=== PATIENT | female | born 1995 | race American Indian/Alaskan Native ===

== ENCOUNTER 2017-01-08 23:18 | Inpatient (IN) | payer MEDICAID ==
[2017-01-09] MEDS ORDERED: LACTATED RINGERS 1,000 ML ONE (00:17)
[2017-01-09] MEDS ORDERED: PITOCin/NS 20 UNIT/1000ML DRIP 20,000 MILLIUNITS/1,000 ML BAG IV ONE (00:46)
[2017-01-09] MEDS ORDERED: BRETHINE IVP PRN (01:23)
[2017-01-09] MEDS ORDERED: ePHEDrine SULFATE IV PRN ×2 (01:23→04:21)
[2017-01-09] MEDS ORDERED: POLYCILLIN/NS 2 GM/100 ML 2 GM/100 ML BAG IV ONE (01:23)
[2017-01-09] MEDS ORDERED: STADOL IV PRN (01:23)
[2017-01-09] MEDS ORDERED: MINERAL OIL PO PRN (01:23)
[2017-01-09] MEDS ORDERED: SUBLIMAZE IV PRN (01:23)
--- NOTE | 2017-01-09 01:32 | History and Physical Report ---
History of Present Illness Date of examination: 01/09/17 Chief complaint: Labor contractions @ 40w0d History of present illness: EDC Calculations 01/09/17 by 1st trimester u/s Past History : 3 Para 1 Abort 1 01/2013 4.5lbs IUGR Past Surgical History: Reviewed history from 08/24/2012 and no changes required: Negative Past Surgical History Past Medical History Abnormal PAP: negative ALEXIS Exposure: negative Infertility: negative Uterine Anomaly: negative Uterine Surgery (not C/S): negative Other Gynecologic Problems: negative Social Hx: Patient is single no etoh, no illicit drug use, no tobacco use Infection History Hx of STD: chlamydia Personal hx. of genital herpes: no Partner hx. of genital herpes: no Rash, Viral, or Febrile illness since last LMP? no Varicella/Chicken Pox Status: Previous Disease Genetic History Congenital Heart Defect: Mom: no Dad: no Marion Disease: Mom: no Dad: no Thalassemia Mom: no Dad: no Neural Tube Defect Mom: no Dad: no Down's Syndrome Mom: no Dad: no Salbador-Sachs Mom: no Dad: no Sickle Cell Disease/Trait Mom: no Dad: no Hemophilia Mom: no Dad: no Muscular Dystrophy Mom: no Dad: no Cystic Fibrosis Mom: no Dad: no [place] Chorea Mom: no Dad: no Mental Retardation Mom: no Dad: no Fragile X Mom: no Dad: no Other Genetic/Chromosomal Disorder Mom: no Dad: no Child w/other defect Mom: no Dad: no Enviromental Exposures Xray Exposure: no Medication, drug, or alcohol use since LMP: no Chemical/Other Exposure: no Exposure to Cat Liter: no Hx of Parvovirus (Fifth Disease): no Occupational Exposure to Children: none Current Allergies: No known allergies Past History Past Medical History: other (CF carrier) Past Surgical History: no surgical history Social history: no significant social history. denies: smoking, alcohol abuse, prescription drug abuse, IV drug use - Obstetrical History Expected Date of Delivery: 01/09/17 Actual Gestation: 40 Week(s) 0 Day(s) : 3 Para: 1 Hx # Term Pregnancies: 1 Number of Pregnancies: 0 Spontaneous Abortions: 0 Induced : 1 Number of Living Children: 1 Medications and Allergies Allergies Allergy/AdvReac Type Severity Reaction Status Date / Time No Known Allergies Allergy Unverified 07/02/16 15:52 Home Medications Medication Instructions Recorded Confirmed Last Taken Type Vit-Fe Penelope-FA [ 1 tab PO QDAY 07/02/16 07/02/16 Unknown History Vitamin] Review of Systems All systems: negative - Vital Signs Vital signs: Vital Signs Pulse Pulse Ox 129 H 98 01/08/17 23:23 01/08/17 23:23 Temp Pulse Resp BP Pulse Ox 129 H 97 01/08/17 23:26 01/08/17 23:26 - Physical Exam Breasts: Positive: normal Cardiovascular: Regular rate Lungs: Positive: Clear to auscultation, Normal air movement Abdomen: Positive: normal appearance, soft Genitourinary (Female): Positive: normal external genitalia, normal perenium Vulva: both: normal Vagina: Positive: normal moisture Uterus: Positive: normal size, normal contour Anus/Rectum: Positive: normal perianal skin Extremities: Positive: normal Deep Tendon Reflex Grade: Normal +2 - Obstetrical FHR: auscultation normal Uterine Contraction Monitor Mode: External Cervical Dilatation: 6 (BBOW, head balotable) Cervical Effacement Percentage: 50 station: -2 Uterine Contraction Frequency (min): 3-5 Uterine Contraction Duration: 80-100 Uterine Contraction Pattern: Regular Uterine Tone Measurement Phase: Contraction Uterine Contraction Intensity: Mild Results All other labs normal. Laboratory Data-Patient Name: ANGELITA RODRIGUEZ Test Date Result Blood Type 06/25/2016 O Rh 06/25/2016 Positive Antibody Screen Negative Rubella 06/25/2016 Immune Serology (RPR) 12/08/2016 nonreactive HBsAg 06/25/2016 Negative Hemoglobin 09/29/2016 8.3 Hematocrit 09/29/2016 27.1 Platelets 06/25/2016 228 [id number] Chlamydia DNA 12/08/2016 Negative GC DNA/Culture 12/08/2016 Urine Culture 06/25/2016 Final report Group B Strep cult 01/05/2013 Positive PAP HIV 12/08/2016 Negative AFP/Quad Screen 08/21/2016 Glucola Test 10/20/2012 94 3hr GTT (Fasting) 1 hr 2 hr 3 hr [facility]-Patient Name:ANGELITA RODRIGUEZ Test Date Result Varicella Ab Sickle Cell 06/25/2016 Negative PPD Fibronectin Cystic Fibrosis 09/14/2012 positive Parvovirus TSH Free T4 Hepatitis C ALT AST Uric Acid Creatinine 24 hr Urine Protein TERESA Assessment and Plan 21y/o @ 40weeks, active labor /-2 BBOW and balotable head in pelvis. GBS +, Orders in EMR. First delivery 2013 IUGR 4#5. This baby 7# by [place]. Epidural PRN. Will allow to labor without intervention for GBS treatment unless necessary. 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
[2017-01-09] MEDS ORDERED: LACTATED RINGERS 1,000 ML IV SCH (02:00)
[2017-01-09] MEDS ORDERED: PITOCin/NS 20 UNIT/1000ML DRIP 20,000 MILLIUNITS/1,000 ML BAG IV SCH ×2 (02:00→15:42)
[2017-01-09 03:31] LABS: Hematocrit 36.3 % (30.3-42.9); Hemoglobin 11.5 gm/dl (10.1-14.3); Mean Corpuscular HGB Conc 32 % (30-34); Mean Corpuscular Volume 71 fl (79-97); Red Blood Count 5.12 M/mm3 (3.65-5.03); White Blood Count 10.9 K/mm3 (4.5-11.0)
[2017-01-09 03:32] LABS: Mean Corpuscular Hemoglobin 23 pg (28-32); Red Cell Distribution Width 27.2 % (13.2-15.2)
[2017-01-09 03:33] LABS: Platelet Count 125 K/mm3 (140-440)
[2017-01-09] MEDS ORDERED: PITOCin/NS 30 UNIT/500ML 30,000 MILLIUNITS/500 ML BAG IV ONE (03:36)
[2017-01-09] MEDS ORDERED: fentaNYL-BUPIV 2 MCG/ML-0.125% 200 MCG/100 ML BAG EPIDURAL ONE (04:04)
--- NOTE | 2017-01-09 04:20 | Anesthesia Consultation ---
Anesthesia Consult and Med Hx Date of service: 01/09/17 - Airway Anesthetic Teeth Evaluation: Good ROM Head & Neck: Adequate Mental/Hyoid Distance: Adequate Intubation Access Assessment: Probably Good - Pre-Operative Health Status ASA Pre-Surgery Classification: ASA2, Emergency Proposed Anesthetic Plan: Epidural, Spinal - Pulmonary Hx Asthma: No COPD: No Hx Pneumonia: No - Cardiovascular System Hx Hypertension: No - Central Nervous System Hx Seizures: No Hx Psychiatric Problems: No - Endocrine Hx Renal Disease: No Hx End Stage Renal Disease: No Hx Hypothyroidism: No Hx Hyperthyroidism: No - Hematic Hx Anemia: Yes Hx Sickle Cell Disease: No - Other Systems Hx Alcohol Use: No - Additional Comments Anesthesia Medical History Comments: Patient has tattoo covering lower back from approximately T12-L1 to sacral area. The L2-L3 interspace has no ink and should be OK for epidural placement.
[2017-01-09] MEDS ORDERED: NARCAN 2 MG/2 ML IV PRN (04:21)
[2017-01-09] MEDS ORDERED: fentaNYL-BUPIV 2 MCG/ML-0.125% 200 MCG/100 ML BAG EPIDURAL SCH (05:00)
[2017-01-09] MEDS ORDERED: PITOCin/NS 30 UNIT/500ML 30,000 MILLIUNITS/500 ML BAG IV SCH (06:00)
[2017-01-09] MEDS: POLYCILLIN/NS 1 GM/50 ML 1 GM/50 ML BAG IV SCH ×2 (06:29→10:59)
--- NOTE | 2017-01-09 06:44 | Progress Note ---
Assessment and Plan pt comfortable s/p epidural, SVE with AROM - mec fluid noted. IUPC placed without difficulty. Second dose of Ampicillin infusing for GBS prophylaxis. 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 Subjective - Subjective Date of service: 01/09/17 Principal diagnosis: IUP @ 40wks, labor, GBS+ Interval history: EDC Calculations 01/09/17 by 1st trimester u/s Past History : 3 Para 1 Abort 1 01/2013 4.5lbs IUGR Past Surgical History: Reviewed history from 08/24/2012 and no changes required: Negative Past Surgical History Past Medical History Abnormal PAP: negative ALEXIS Exposure: negative Infertility: negative Uterine Anomaly: negative Uterine Surgery (not C/S): negative Other Gynecologic Problems: negative Social Hx: Patient is single no etoh, no illicit drug use, no tobacco use Infection History Hx of STD: chlamydia Personal hx. of genital herpes: no Partner hx. of genital herpes: no Rash, Viral, or Febrile illness since last LMP? no Varicella/Chicken Pox Status: Previous Disease Genetic History Congenital Heart Defect: Mom: no Dad: no Marion Disease: Mom: no Dad: no Thalassemia Mom: no Dad: no Neural Tube Defect Mom: no Dad: no Down's Syndrome Mom: no Dad: no Salbador-Sachs Mom: no Dad: no Sickle Cell Disease/Trait Mom: no Dad: no Hemophilia Mom: no Dad: no Muscular Dystrophy Mom: no Dad: no Cystic Fibrosis Mom: no Dad: no [place] Chorea Mom: no Dad: no Mental Retardation Mom: no Dad: no Fragile X Mom: no Dad: no Other Genetic/Chromosomal Disorder Mom: no Dad: no Child w/other defect Mom: no Dad: no Enviromental Exposures Xray Exposure: no Medication, drug, or alcohol use since LMP: no Chemical/Other Exposure: no Exposure to Cat Liter: no Hx of Parvovirus (Fifth Disease): no Occupational Exposure to Children: none Current Allergies: No known allergies Patient reports: no new complaints Objective - Vital Signs Vital Signs: Vital Signs - 12hr 01/08/17 01/08/17 01/08/17 23:23 23:24 23:25 Pulse Rate 129 H 129 H 125 H Respiratory Rate Blood Pressure O2 Sat by Pulse 98 98 97 Oximetry 01/08/17 01/09/17 01/09/17 23:26 00:46 02:27 Pulse Rate 129 H 86 Respiratory Rate Blood Pressure 169/92 132/76 O2 Sat by Pulse 97 98 Oximetry 01/09/17 01/09/17 01/09/17 02:28 02:39 02:40 Pulse Rate 91 H 105 H 110 H Respiratory Rate Blood Pressure 129/93 119/77 O2 Sat by Pulse 98 Oximetry 01/09/17 01/09/17 01/09/17 03:46 03:47 03:50 Pulse Rate 121 H 125 H 122 H Respiratory Rate Blood Pressure 124/80 137/74 O2 Sat by Pulse 100 Oximetry 01/09/17 01/09/17 01/09/17 03:51 03:53 03:55 Pulse Rate 105 H 118 H 108 H Respiratory Rate Blood Pressure 128/70 124/66 129/69 O2 Sat by Pulse 99 Oximetry 01/09/17 01/09/17 01/09/17 03:56 03:57 03:59 Pulse Rate 122 H 107 H 104 H Respiratory Rate Blood Pressure 133/77 122/74 O2 Sat by Pulse 100 Oximetry 01/09/17 01/09/17 01/09/17 04:01 04:03 04:06 Pulse Rate 110 H 116 H 97 H Respiratory Rate Blood Pressure 121/73 121/74 125/72 O2 Sat by Pulse 100 98 Oximetry 01/09/17 01/09/17 01/09/17 04:07 04:09 04:11 Pulse Rate 96 H 80 115 H Respiratory Rate Blood Pressure 125/75 125/72 121/80 O2 Sat by Pulse 99 Oximetry 01/09/17 01/09/17 01/09/17 04:14 04:15 04:16 Pulse Rate 93 H 87 88 Respiratory 20 20 Rate Blood Pressure 140/63 126/60 126/60 O2 Sat by Pulse 98 Oximetry 01/09/17 01/09/17 01/09/17 04:17 04:21 04:26 Pulse Rate 92 H 84 92 H Respiratory Rate Blood Pressure 115/55 O2 Sat by Pulse 97 97 Oximetry 01/09/17 01/09/17 01/09/17 04:31 04:34 04:36 Pulse Rate 84 85 89 Respiratory Rate Blood Pressure 115/66 O2 Sat by Pulse 98 98 Oximetry 01/09/17 01/09/17 01/09/17 04:41 04:46 04:49 Pulse Rate 87 91 H 92 H Respiratory Rate Blood Pressure 120/73 O2 Sat by Pulse 98 98 Oximetry 01/09/17 01/09/17 01/09/17 04:51 04:56 05:01 Pulse Rate 80 80 115 H Respiratory Rate Blood Pressure O2 Sat by Pulse 99 98 99 Oximetry 01/09/17 01/09/17 01/09/17 05:05 05:06 05:11 Pulse Rate 89 81 94 H Respiratory Rate Blood Pressure 114/69 O2 Sat by Pulse 99 99 Oximetry 01/09/17 01/09/17 01/09/17 05:16 05:20 05:21 Pulse Rate 105 H 81 90 Respiratory Rate Blood Pressure 122/76 O2 Sat by Pulse 99 99 Oximetry 01/09/17 01/09/17 01/09/17 05:26 05:31 05:36 Pulse Rate 81 104 H 102 H Respiratory Rate Blood Pressure 114/69 O2 Sat by Pulse 99 100 99 Oximetry 01/09/17 01/09/17 01/09/17 05:41 05:46 05:49 Pulse Rate 89 102 H 110 H Respiratory Rate Blood Pressure 113/71 O2 Sat by Pulse 100 100 Oximetry 01/09/17 01/09/17 01/09/17 05:51 05:56 06:01 Pulse Rate 97 H 105 H 87 Respiratory Rate Blood Pressure O2 Sat by Pulse 100 100 100 Oximetry 01/09/17 01/09/17 01/09/17 06:04 06:06 06:11 Pulse Rate 105 H 101 H 109 H Respiratory Rate Blood Pressure 116/69 O2 Sat by Pulse 100 100 Oximetry 01/09/17 01/09/17 01/09/17 06:16 06:19 06:21 Pulse Rate 83 108 H 107 H Respiratory Rate Blood Pressure 116/66 O2 Sat by Pulse 100 100 Oximetry 01/09/17 01/09/17 01/09/17 06:26 06:31 06:36 Pulse Rate 166 H 127 H 140 H Respiratory Rate Blood Pressure O2 Sat by Pulse 100 100 100 Oximetry - Exam Breasts: normal Cardiovascular: Regular rate Lungs: Clear to auscultation, Normal air movement Abdomen: Present: normal appearance, soft Vulva: both: normal Uterus: Present: normal FHR: auscultation normal Uterine Contraction Monitor Mode: Internal Cervical Dilatation: 7 (AROM - mec) Cervical Effacement Percentage: 50 station: -2 Uterine Contraction Frequency (min): 2-6 Uterine Contraction Duration: 70-100 Uterine Contraction Pattern: Irregular Uterine Tone Measurement Phase: Contraction Uterine Contraction Intensity: Moderate Extremities: normal - Labs Labs: Abnormal Labs 01/09/17 01:43 RBC 5.12 H MCV 71 L MCH 23 L RDW 27.2 H Plt Count 125 L Laboratory Results - last 24 hr 01/09/17 01/09/17 01:43 01:43 WBC 10.9 RBC 5.12 H Hgb 11.5 Hct 36.3 MCV 71 L MCH 23 L MCHC 32 RDW 27.2 H Plt Count 125 L Blood Type O POSITIVE
--- NOTE | 2017-01-09 10:18 | Progress Note ---
Assessment and Plan pt comfortable with epidural SVE 9 with extremely thick posterior cervix, vertex -2 Pit @ 4mu FHR cat 2 with occ variables Re-eval in 30 min Pt is aware of concerns for a poss c/s if baby does not come down. Subjective - Subjective Date of service: 01/09/17 (pt comfortable with epidural) Principal diagnosis: IUP @ 40wks, labor, GBS+, meconium Patient reports: movement normal, no new complaints Objective - Vital Signs Vital Signs: Vital Signs - 12hr 01/08/17 01/08/17 01/08/17 23:23 23:24 23:25 Temperature Pulse Rate 129 H 129 H 125 H Pulse Rate [ Radial] Respiratory Rate Blood Pressure Blood Pressure [Left Arm] O2 Sat by Pulse 98 98 97 Oximetry 01/08/17 01/09/17 01/09/17 23:26 00:46 02:27 Temperature Pulse Rate 129 H 86 Pulse Rate [ Radial] Respiratory Rate Blood Pressure 169/92 132/76 Blood Pressure [Left Arm] O2 Sat by Pulse 97 98 Oximetry 01/09/17 01/09/17 01/09/17 02:28 02:39 02:40 Temperature Pulse Rate 91 H 105 H 110 H Pulse Rate [ Radial] Respiratory Rate Blood Pressure 129/93 119/77 Blood Pressure [Left Arm] O2 Sat by Pulse 98 Oximetry 01/09/17 01/09/17 01/09/17 03:46 03:47 03:50 Temperature Pulse Rate 121 H 125 H 122 H Pulse Rate [ Radial] Respiratory Rate Blood Pressure 124/80 137/74 Blood Pressure [Left Arm] O2 Sat by Pulse 100 Oximetry 01/09/17 01/09/17 01/09/17 03:51 03:53 03:55 Temperature Pulse Rate 105 H 118 H 108 H Pulse Rate [ Radial] Respiratory Rate Blood Pressure 128/70 124/66 129/69 Blood Pressure [Left Arm] O2 Sat by Pulse 99 Oximetry 01/09/17 01/09/17 01/09/17 03:56 03:57 03:59 Temperature Pulse Rate 122 H 107 H 104 H Pulse Rate [ Radial] Respiratory Rate Blood Pressure 133/77 122/74 Blood Pressure [Left Arm] O2 Sat by Pulse 100 Oximetry 01/09/17 01/09/17 01/09/17 04:01 04:03 04:06 Temperature Pulse Rate 110 H 116 H 97 H Pulse Rate [ Radial] Respiratory Rate Blood Pressure 121/73 121/74 125/72 Blood Pressure [Left Arm] O2 Sat by Pulse 100 98 Oximetry 01/09/17 01/09/17 01/09/17 04:07 04:09 04:11 Temperature Pulse Rate 96 H 80 115 H Pulse Rate [ Radial] Respiratory Rate Blood Pressure 125/75 125/72 121/80 Blood Pressure [Left Arm] O2 Sat by Pulse 99 Oximetry 01/09/17 01/09/17 01/09/17 04:14 04:15 04:16 Temperature Pulse Rate 93 H 87 88 Pulse Rate [ Radial] Respiratory 20 20 Rate Blood Pressure 140/63 126/60 126/60 Blood Pressure [Left Arm] O2 Sat by Pulse 98 Oximetry 01/09/17 01/09/17 01/09/17 04:17 04:21 04:26 Temperature Pulse Rate 92 H 84 92 H Pulse Rate [ Radial] Respiratory Rate Blood Pressure 115/55 Blood Pressure [Left Arm] O2 Sat by Pulse 97 97 Oximetry 01/09/17 01/09/17 01/09/17 04:31 04:34 04:36 Temperature Pulse Rate 84 85 89 Pulse Rate [ Radial] Respiratory Rate Blood Pressure 115/66 Blood Pressure [Left Arm] O2 Sat by Pulse 98 98 Oximetry 01/09/17 01/09/17 01/09/17 04:41 04:46 04:49 Temperature Pulse Rate 87 91 H 92 H Pulse Rate [ Radial] Respiratory Rate Blood Pressure 120/73 Blood Pressure [Left Arm] O2 Sat by Pulse 98 98 Oximetry 01/09/17 01/09/17 01/09/17 04:51 04:56 05:01 Temperature Pulse Rate 80 80 115 H Pulse Rate [ Radial] Respiratory Rate Blood Pressure Blood Pressure [Left Arm] O2 Sat by Pulse 99 98 99 Oximetry 01/09/17 01/09/17 01/09/17 05:05 05:06 05:11 Temperature Pulse Rate 89 81 94 H Pulse Rate [ Radial] Respiratory Rate Blood Pressure 114/69 Blood Pressure [Left Arm] O2 Sat by Pulse 99 99 Oximetry 01/09/17 01/09/17 01/09/17 05:16 05:20 05:21 Temperature Pulse Rate 105 H 81 90 Pulse Rate [ Radial] Respiratory Rate Blood Pressure 122/76 Blood Pressure [Left Arm] O2 Sat by Pulse 99 99 Oximetry 01/09/17 01/09/17 01/09/17 05:26 05:31 05:36 Temperature Pulse Rate 81 104 H 102 H Pulse Rate [ Radial] Respiratory Rate Blood Pressure 114/69 Blood Pressure [Left Arm] O2 Sat by Pulse 99 100 99 Oximetry 01/09/17 01/09/17 01/09/17 05:41 05:46 05:49 Temperature Pulse Rate 89 102 H 110 H Pulse Rate [ Radial] Respiratory Rate Blood Pressure 113/71 Blood Pressure [Left Arm] O2 Sat by Pulse 100 100 Oximetry 01/09/17 01/09/17 01/09/17 05:51 05:56 06:01 Temperature Pulse Rate 97 H 105 H 87 Pulse Rate [ Radial] Respiratory Rate Blood Pressure Blood Pressure [Left Arm] O2 Sat by Pulse 100 100 100 Oximetry 01/09/17 01/09/17 01/09/17 06:04 06:06 06:11 Temperature Pulse Rate 105 H 101 H 109 H Pulse Rate [ Radial] Respiratory Rate Blood Pressure 116/69 Blood Pressure [Left Arm] O2 Sat by Pulse 100 100 Oximetry 01/09/17 01/09/17 01/09/17 06:16 06:19 06:21 Temperature Pulse Rate 83 108 H 107 H Pulse Rate [ Radial] Respiratory Rate Blood Pressure 116/66 Blood Pressure [Left Arm] O2 Sat by Pulse 100 100 Oximetry 01/09/17 01/09/17 01/09/17 06:26 06:31 06:36 Temperature Pulse Rate 166 H 127 H 140 H Pulse Rate [ Radial] Respiratory Rate Blood Pressure Blood Pressure [Left Arm] O2 Sat by Pulse 100 100 100 Oximetry 01/09/17 01/09/17 01/09/17 06:41 06:46 06:49 Temperature Pulse Rate 91 H 125 H 108 H Pulse Rate [ Radial] Respiratory Rate Blood Pressure 112/69 Blood Pressure [Left Arm] O2 Sat by Pulse 100 100 Oximetry 01/09/17 01/09/17 01/09/17 06:51 06:56 07:01 Temperature Pulse Rate 92 H 97 H 101 H Pulse Rate [ Radial] Respiratory Rate Blood Pressure Blood Pressure [Left Arm] O2 Sat by Pulse 100 100 100 Oximetry 01/09/17 01/09/17 01/09/17 07:05 07:06 07:11 Temperature Pulse Rate 110 H 117 H 94 H Pulse Rate [ Radial] Respiratory Rate Blood Pressure 131/73 Blood Pressure [Left Arm] O2 Sat by Pulse 100 99 Oximetry 01/09/17 01/09/17 01/09/17 07:16 07:19 07:21 Temperature Pulse Rate 105 H 90 95 H Pulse Rate [ Radial] Respiratory Rate Blood Pressure 128/73 Blood Pressure [Left Arm] O2 Sat by Pulse 99 98 Oximetry 01/09/17 01/09/17 01/09/17 07:26 07:29 07:31 Temperature Pulse Rate 121 H 110 H 145 H Pulse Rate [ Radial] Respiratory Rate Blood Pressure 137/92 Blood Pressure [Left Arm] O2 Sat by Pulse 96 92 100 Oximetry 01/09/17 01/09/17 01/09/17 07:35 07:49 07:52 Temperature 99.8 F H Pulse Rate 100 H 96 H Pulse Rate [ 60 Radial] Respiratory 18 Rate Blood Pressure 125/76 122/77 Blood Pressure 125/76 [Left Arm] O2 Sat by Pulse 94 Oximetry 01/09/17 01/09/17 01/09/17 07:57 08:04 08:14 Temperature Pulse Rate 88 99 H 90 Pulse Rate [ Radial] Respiratory Rate Blood Pressure 123/69 Blood Pressure [Left Arm] O2 Sat by Pulse 99 99 Oximetry 01/09/17 01/09/17 01/09/17 08:19 08:24 08:27 Temperature 99.9 F H Pulse Rate 111 H 97 H Pulse Rate [ Radial] Respiratory Rate Blood Pressure 121/68 Blood Pressure [Left Arm] O2 Sat by Pulse 100 100 Oximetry 01/09/17 01/09/17 01/09/17 08:29 08:34 08:39 Temperature Pulse Rate 91 H 94 H 99 H Pulse Rate [ Radial] Respiratory Rate Blood Pressure 125/72 Blood Pressure [Left Arm] O2 Sat by Pulse 99 100 100 Oximetry 01/09/17 01/09/17 01/09/17 08:44 08:49 08:50 Temperature Pulse Rate 92 H 97 H 97 H Pulse Rate [ Radial] Respiratory Rate Blood Pressure 134/77 Blood Pressure [Left Arm] O2 Sat by Pulse 99 100 Oximetry 01/09/17 01/09/17 01/09/17 08:54 08:59 09:04 Temperature Pulse Rate 99 H 94 H 94 H Pulse Rate [ Radial] Respiratory Rate Blood Pressure 134/71 Blood Pressure [Left Arm] O2 Sat by Pulse 100 100 97 Oximetry 01/09/17 01/09/17 01/09/17 09:09 09:14 09:19 Temperature Pulse Rate 90 97 H 91 H Pulse Rate [ Radial] Respiratory Rate Blood Pressure Blood Pressure [Left Arm] O2 Sat by Pulse 100 100 100 Oximetry 01/09/17 01/09/17 01/09/17 09:20 09:24 09:29 Temperature Pulse Rate 88 105 H 99 H Pulse Rate [ Radial] Respiratory Rate Blood Pressure 127/71 Blood Pressure [Left Arm] O2 Sat by Pulse 100 99 Oximetry 01/09/17 01/09/17 01/09/17 09:34 09:39 09:44 Temperature Pulse Rate 97 H 114 H 96 H Pulse Rate [ Radial] Respiratory Rate Blood Pressure 119/66 Blood Pressure [Left Arm] O2 Sat by Pulse 99 99 100 Oximetry 01/09/17 01/09/17 01/09/17 09:49 09:54 09:59 Temperature Pulse Rate 100 H 97 H 93 H Pulse Rate [ Radial] Respiratory Rate Blood Pressure 122/73 Blood Pressure [Left Arm] O2 Sat by Pulse 100 100 100 Oximetry 01/09/17 10:04 Temperature Pulse Rate 100 H Pulse Rate [ Radial] Respiratory Rate Blood Pressure 120/70 Blood Pressure [Left Arm] O2 Sat by Pulse 100 Oximetry - Exam Breasts: deferred Cardiovascular: Regular rate Lungs: Normal air movement Abdomen: Present: normal appearance, soft. Absent: distention, tenderness Uterus: Present: normal FHR: auscultation normal, category 2 (occ variables with ctx) Uterine Contraction Monitor Mode: Internal Cervical Dilatation: 9 (thick cervix posterior) Cervical Effacement Percentage: 60 station: -2 Uterine Contraction Pattern: Regular Uterine Tone Measurement Phase: Resting Uterine Contraction Intensity: Moderate Extremities: normal Deep Tendon Reflex Grade: Normal +2 - Labs Labs: Abnormal Labs 01/09/17 01:43 RBC 5.12 H MCV 71 L MCH 23 L RDW 27.2 H Plt Count 125 L Laboratory Results - last 24 hr 01/09/17 01/09/17 01:43 01:43 WBC 10.9 RBC 5.12 H Hgb 11.5 Hct 36.3 MCV 71 L MCH 23 L MCHC 32 RDW 27.2 H Plt Count 125 L Blood Type O POSITIVE Antibody Screen Negative
[2017-01-09] MEDS ORDERED: TYLENOL PO ONE (11:05)
[2017-01-09] MEDS ORDERED: REGLAN IV ONE (11:37)
[2017-01-09] MEDS ORDERED: PEPCID IV ONE (11:37)
[2017-01-09] MEDS ORDERED: BICITRA PO ONE (11:37)
--- NOTE | 2017-01-09 11:42 | Event Note ---
Date: 01/09/17 (c/s arrest of descent) Attempted to have pt push past 9cm cervix. No descent of head. Large amt of bloody show. Category 2 strip. Pt is aware this baby is much larger than her fist and my concern is shoulder dystocia if I could deliver the head. Pt agreed to section. Spoke with Dr Harrison C/S called Pt consented. Orders in EMR. Discussed with pt risks of sugery and poss need for blood
--- NOTE | 2017-01-09 11:58 | Event Note ---
Date: 01/09/17 Discussed with patient the indications for operative delivery. All questions answered. Patient informed the risks of the surgery include bleeding possibly bleeding heavy enough to require blood transfusion, infection possible damage to bowel bladder ureter. All questions answered. Patient agrees to proceed
[2017-01-09] MEDS ORDERED: XYLOCAINE MPF 2% ONE ×2 (11:59→12:51)
[2017-01-09] MEDS ORDERED: MORPHINE ONE (11:59)
[2017-01-09] MEDS ORDERED: PITOCin 20 UNIT in NACL 0.9% 1000 ML 1,000 ML IV SCH (12:00)
[2017-01-09] MEDS ORDERED: LACTATED RINGERS 1,000 ML IV NR (12:00)
[2017-01-09] MEDS ORDERED: ANCEF/STERILE WATER 2 GM/20 ML 2 GM/20 ML SYRINGE IV NR (12:00)
[2017-01-09] MEDS ORDERED: ANCEF/STERILE WATER 2 GM/20 ML IV ONE (12:00)
[2017-01-09] MEDS ORDERED: ZOFRAN ONE (12:11)
[2017-01-09] MEDS ORDERED: NACL 0.9% IR ONE (12:36)
[2017-01-09] MEDS ORDERED: WATER FOR IRRIG STERILE IR ONE (12:36)
[2017-01-09] MEDS ORDERED: MORPHINE IV PRN ×3 (13:03→15:42)
--- NOTE | 2017-01-09 13:03 | Post Anesthesia Evaluation ---
- Post Anesthesia Evaluation Patient Participated: Yes Airway Patent: Yes Stable Respiratory Function: Yes Nausea/Vomiting: No Temp > 96.8F: Yes Pain Manageable: Yes Adequeate Hydration: Yes Anesthesia Complications: No Block Receding Appropriately: Yes Patient on Ventilator: No
--- NOTE | 2017-01-09 13:03 | Anesthesia Day of Surgery ---
Anesthesia Day of Surgery - Day of Surgery Patient Examined: Yes Patient H&P Reviewed: Yes Patient is NPO: Yes
[2017-01-09] MEDS ORDERED: TORADOL IV PRN (13:04)
--- NOTE | 2017-01-09 13:10 | Operative Report ---
Operative Report Operative Report: Date of procedure: 01/09/2017 Pre-operative diagnosis: Intrauterine at 40 weeks gestation with meconium-stained fluid and failure of descent Post-operative diagnosis: Same Procedure name(s): Primary low transverse section Surgeon: Yovany Harrison MD Surfboard Designer: Sarah Lamar certified nurse operations and maintenance technician Anesthesia: Epidural EBL: 600 mL Complications: None Findings: Adenoid male weight 8 lbs. 3 oz. Apgars 9 at 1 minute and 9 at 5 minutes patient with normal uterus, tubes and ovaries bilaterally Specimen(s): None Procedure: The patient was brought to the operating room. A spinal was placed without any complications. She was then placed in left lateral tilt. Prepped and draped in the usual sterile manner. After testing for adequate anesthesia level, a Pfannenstiel incision was made. This incision was taken down to the fascia. The fascia was then nicked in the midline. This incision was extended out laterally with Toscano scissors. The fascia was then sharply and bluntly from the underlying rectus muscles. The rectus muscles were bluntly and sharply . The peritoneum was then entered with the feed mill operator's fingers. This incision was spread vertically with care not to damage the bladder below. The bladder flap was then formed sharply and bluntly with Metzenbaum scissors. Bladder blade was placed. A transverse incision was made in lower uterine segment. This incision was extended laterally with the operators fingers. The amniotic sac was then entered bluntly with the feed mill operator' s fingers. The infant was delivered from the vertex position. Bulb suction on the mother's abdomen. Cord was double clamped and cut. The was then passed to the nursery personnel who were in attendance. The above scores were given by the nursery personnel. The placenta was then bluntly removed. The uterus was then externalized and wiped clean the remaining products. The uterine incision was closed in layers. The first incision was closed in a locking manner using 0 Vicryl. This was followed by imbricating stitch also with 0 Vicryl. Additional [id number] sutures had to be place. This closure was hemostatic. The bladder flap was copiously irrigated and found to be hemostatic. The pelvis was copiously irrigated and found to be hemostatic. The uterus was then placed back to the patient's abdomen. Surgicel was placed over the uterine incision. The retractors were removed. The rectus muscles were inspected and found to be hemostatic. The fascia was then closed in a running manner using 0 Vicryl. This incision was hemostatic irrigation Bovie. The skin was reapproximated with 4-0 Vicryl subcuticularly. The patient tolerated procedure well. Her urine was clear. The was admitted to the well baby nursery. The patient was accompanied to recovery room in good condition. Instrument count correct 3.
[2017-01-09] MEDS ORDERED: LANSINOH TP PRN (15:42)
[2017-01-09] MEDS ORDERED: TUCKS PAD TP PRN (15:42)
[2017-01-09] MEDS ORDERED: SODIUM CHLORIDE FLUSH SYRINGE 10 ML IV NR (15:42)
[2017-01-09] MEDS ORDERED: MILK OF MAGNESIA PO PRN (15:42)
[2017-01-09] MEDS ORDERED: MYLICON PO PRN (15:42)
[2017-01-09] MEDS ORDERED: NARCAN 0.4 MG/1 ML IV PRN (15:42)
[2017-01-09] MEDS ORDERED: D5LR 1,000 ML IV SCH (15:42)
[2017-01-09] MEDS ORDERED: ANCEF/NS 1 GM/50 ML 1 GM/50 ML BAG IV SCH (16:00)
[2017-01-09] MEDS: ANCEF/NS 1 GM/50 ML 1 GM/50 ML BAG IV SCH (20:40)
[2017-01-10 01:00] LABS: Hematocrit 29.3 % (30.3-42.9); Hemoglobin 9.2 gm/dl (10.1-14.3)
[2017-01-10] MEDS: ANCEF/NS 1 GM/50 ML 1 GM/50 ML BAG IV SCH (05:05)
--- NOTE | 2017-01-10 07:58 | Progress Note ---
Assessment and Plan - Patient Problems (1) delivery delivered Onset Date: ~01/09/17 Current Visit: Yes Status: Acute Plan to address problem: Pt w/o complaint this AM VSS FF below umb Lochia small Dressing removed Incision D&I H&H 9.2/29.3, anemia r/t blood loss of surgery. Pt w/o any s/sx of anemia. Doing well s/p section P: continue pathway. Add po Iron to medications. Advance diet and activity Subjective - Subjective Date of service: 01/10/17 (pt w/o complaint) Principal diagnosis: Day # 1 s/p Patient reports: appetite normal, voiding normally, pain well controlled, ambulating normally Martin: doing well Objective - Vital Signs Latest vital signs: Vital Signs Temp Pulse Pulse Resp BP BP Pulse Ox 01/10/17 04:35 98.4 F 112 H 18 113/73 01/10/17 01:30 99.6 F 105 H 18 116/65 01/09/17 20:55 99.8 F H 112 H 18 130/66 01/09/17 16:10 99.2 F 100 H 18 102/52 01/09/17 14:00 98.9 F 98 H 18 132/80 01/09/17 13:51 99.0 F 93 H 20 131/79 99 01/09/17 13:35 98.2 F 91 H 18 126/71 99 01/09/17 13:20 99.2 F 100 H 18 128/75 99 01/09/17 13:05 89 25 H 132/83 99 01/09/17 13:00 101 H 24 135/88 99 01/09/17 12:55 99.3 F 100 H 22 120/72 99 01/09/17 11:49 118 H 122/68 01/09/17 11:35 150 H 121/79 01/09/17 11:20 105 H 108/81 01/09/17 11:05 112 H 122/69 01/09/17 10:58 100.8 F H 95 H 20 119/66 01/09/17 10:49 117 H 119/66 01/09/17 10:34 96 H 129/74 01/09/17 10:19 103 H 122/73 01/09/17 10:04 100 H 120/70 100 01/09/17 09:59 93 H 100 02/18/17 09:54 97 H 100 01/09/17 09:49 100 H 122/73 100 01/09/17 09:44 96 H 100 01/09/17 09:39 114 H 99 01/09/17 09:34 97 H 119/66 99 01/09/17 09:29 99 H 99 01/09/17 09:24 105 H 100 01/09/17 09:20 88 127/71 01/09/17 09:19 91 H 100 01/09/17 09:14 97 H 100 01/09/17 09:09 90 100 01/09/17 09:04 94 H 134/71 97 01/09/17 08:59 94 H 100 01/09/17 08:54 99 H 100 01/09/17 08:50 97 H 134/77 01/09/17 08:49 97 H 100 01/09/17 08:44 92 H 99 01/09/17 08:39 99 H 100 01/09/17 08:34 94 H 125/72 100 01/09/17 08:29 91 H 99 01/09/17 08:27 99.9 F H 01/09/17 08:24 97 H 100 01/09/17 08:19 111 H 121/68 100 01/09/17 08:14 90 99 01/09/17 08:04 99 H 123/69 01/09/17 07:57 88 99 Intake and Output 01/09/17 01/10/17 01/10/17 22:59 06:59 14:59 Intake Total 1010 1290 Output Total 2350 1000 Balance -1340 290 Intake: IV 50 1050 ANCEF/NS 1 GM/50 ML 1 gm 50 50 In 50 ml @ 100 mls/hr IV Q8H DEBI Rx#:[id number] D5lr 1,000 ml @ 125 mls/ 1000 hr IV DIRECT DEBI Rx#: [id number] Oral 720 Intake, Free Water 240 240 Output: Urine 2350 1000 Indwelling Catheter 2350 800 Void 200 Other: Total, Intake Amount 480 Total, Output Amount 1600 200 - Exam Breasts: Present: normal, Cardiovascular: Present: Regular rate Lungs: Present: Clear to auscultation, Normal air movement Abdomen: Present: normal appearance, soft, normal bowel sounds Uterus: Present: normal, fundal height below umbilicus Extremities: Present: normal Deep Tendon Reflex Grade: Normal +2 Incision: Present: dry (dressing removed by CNM), intact - Labs Labs: Abnormal lab results 01/10/17 Range/Units 00:47 Hgb 9.2 L (10.1-14.3) gm/dl Hct 29.3 L D (30.3-42.9) %
--- NOTE | 2017-01-10 09:34 | Progress Note ---
Subjective Date of service: 01/10/17 Principal diagnosis: Day # 1 s/p Interval history: Epidural removed. No anesthetic related complaints. Objective - Constitutional Vitals: Vital Signs - 12hr 01/10/17 01/10/17 01/10/17 01:30 04:35 08:32 Temperature 99.6 F 98.4 F 98.4 F Pulse Rate [ 105 H 112 H 98 H Radial] Respiratory 18 18 18 Rate Blood Pressure 116/65 113/73 104/54 [Left Arm] - Labs CBC & Chem 7: 01/10/17 00:47 Labs: Abnormal lab results 01/10/17 Range/Units 00:47 Hgb 9.2 L (10.1-14.3) gm/dl Hct 29.3 L D (30.3-42.9) %
[2017-01-10] MEDS ORDERED: PRENATAL VITAMIN PO SCH (10:00)
[2017-01-10] MEDS ORDERED: FEOSOL PO SCH (10:00)
[2017-01-10] MEDS: MOTRIN PO PRN (13:32)
[2017-01-10] MEDS: NORCO 5/325 PO PRN (18:02)
[2017-01-11] MEDS: MOTRIN PO PRN ×2 (00:06→06:41)
[2017-01-11] MEDS: NORCO 5/325 PO PRN (00:09)
--- NOTE | 2017-01-11 08:56 | Discharge Summary ---
Providers - Providers Date of Admission: 01/09/17 02:01 Date of discharge: 01/11/17 Attending physician: BROOK GRAVES 01/09/17 15:42 Consult to President Celebrity Acquistion [CONS] Routine Reason For Exam: Primary care physician: BROOK GRAVES Hospitalization Reason for admission: active labor Delivery: Procedure: section (failure of descent) Other procedures: none complications: none Discharge diagnosis: IUP at term delivered baby: male (8#15oz 9/9) Condition at discharge: Good Disposition: DISCHARGED TO HOME OR SELFCARE - Discharge Diagnoses (1) Failure of descent in labor, delivered, current hospitalization Status: Acute (2) delivery delivered Status: Acute (3) Anemia affecting in third trimester Status: Resolved (4) Active labor at term Status: Acute Plan - Discharge Medications Prescriptions: Docusate Sodium [Colace] 100 mg PO BID PRN #60 capsule PRN Reason: Constipation Ferrous Sulfate [Feosol 325 MG tab] 325 mg PO BID #60 tablet Ibuprofen [Motrin 800 MG tab] 800 mg PO Q6H PRN #30 tablet PRN Reason: Pain Lidocain2.5%/Prilocai2.5% [Emla] 5 gm TP PRN #1 tube oxyCODONE /ACETAMINOPHEN [Percocet 5/325 mg] 1 - 2 tab PO Q4H PRN #30 tablet PRN Reason: Pain, Moderate - Provider Discharge Summary Activity: routine, no sex for 6 weeks, no heavy lifting 4 weeks, no strenuous exercise Diet: routine Instructions: routine Additional instructions: [] Smoking cessation referral if applicable(refer to patient education folder for contact #) [] Refer to [facility]'s [facility] Booklet Call your doctor immediately for: * Fever > 100.5 * Heavy vaginal bleeding ( >1 pad per hour) * Severe persistent headache * Shortness of breath * Reddened, hot, painful area to leg or breast * Drainage or odor from incision. * Keep incision clean and dry at all times and follow doctor's instructions regarding bathing/showering - Follow up plan Follow up: BROOK GRAVES MD [Primary Care Provider] - 7 Days
[2017-01-11 13:27] VITALS: BP 106/58
== END 2017-01-11 12:40 | disposition home or self-care (01) | DRG 765 ==
LOC: TRG 23:18 → LD 01-09 00:22 → UNDOADMIN 01-09 00:22 → TRG 01-09 02:01 → LD 01-09 02:01 → APU 01-09 12:02 → OB 01-09 14:29
PROVIDERS: ADMIT Obstetrics & Gynecology; ATTEND Obstetrics & Gynecology
PROC: 10D00Z1 Extraction of Products of Conception, Low, Open Approach (ICD-10-PCS; principal; 2017-01-09)
PROC: 10907ZC Drainage of Amniotic Fluid, Therapeutic from Products of Conception, Via Natural or Artificial Opening (ICD-10-PCS; 2017-01-09)
PROC: 10H07YZ Insertion of Other Device into Products of Conception, Via Natural or Artificial Opening (ICD-10-PCS; 2017-01-09)
DX: O32.4XX0 Maternal care for high head at term, not applicable or unspecified (principal); E84.9 Cystic fibrosis, unspecified; O99.824 Streptococcus B carrier state complicating childbirth; O77.0 Labor and delivery complicated by meconium in amniotic fluid; O99.02 Anemia complicating childbirth; O75.89 Other specified complications of labor and delivery; D64.9 Anemia, unspecified; Z3A.40 40 weeks gestation of pregnancy; Z37.0 Single live birth
CPT/HCPCS: 36415; 85014; 85018; 85027; 86592; 86850; 86900; 86901; J0290; J0690; J1885; J2270; J2405; J2590; J2765; J7120; J7121

== ENCOUNTER 2020-03-19 13:41 | Outpatient (CLI) | payer MEDICAID ==
[2020-03-19 16:20] VITALS: BP 113/64
--- NOTE | 2020-03-19 16:46 | Vascular Lab Report ---
DUPLEX DOPPLER LOWER EXTREMITY VEINS, BILATERAL INDICATION: r/o clott. TECHNIQUE: Duplex doppler imaging was performed through the veins of both lower extremities using venous james natalya and other maneuvers. COMPARISON: No relevant prior imaging study available. FINDINGS: Right Common femoral vein: Negative. Right Superficial femoral vein: Negative. Right Popliteal vein: Negative. Right Calf veins: Negative. Left Common femoral vein: Negative. Left Superficial femoral vein: Negative. Left Popliteal vein: Negative. Left Calf veins: Negative. Additional findings: None.. IMPRESSION: 1. No sonographic evidence for DVT in either lower extremity. Signer Name: Leo Osborne MD Signed: 03/19/2020 4:41 PM Workstation Name: [id number]
== END 2020-03-19 17:12 | disposition home or self-care (01) ==
LOC: TRG 13:41 → APU 13:42 → TRG 17:12
PROVIDERS: ATTEND Obstetrics & Gynecology
DX: O26.892 Other specified pregnancy related conditions, second trimester (principal); M79.604 Pain in right leg; Z3A.27 27 weeks gestation of pregnancy
CPT/HCPCS: 93970

== ENCOUNTER 2020-06-04 01:33 | Outpatient (CLI) | payer MEDICAID ==
[2020-06-04 02:02] VITALS: BP 117/69
[2020-06-04] MEDS ORDERED: LACTATED RINGERS 1,000 ML IV ONE (02:38)
[2020-06-04] MEDS ORDERED: TERBUTALINE 1 MG/1 ML INJ IVP ONE (02:38)
== END 2020-06-04 04:25 | disposition home or self-care (01) ==
LOC: TRG 01:33 → APU 01:34 → TRG 04:25
PROVIDERS: ATTEND Obstetrics & Gynecology
DX: O62.9 Abnormality of forces of labor, unspecified (principal); Z3A.39 39 weeks gestation of pregnancy
CPT/HCPCS: 59025; 96360; 96372; J3105; J7120